=== PATIENT | male | born 1960 | race Caucasian/White ===

== ENCOUNTER 2019-04-10 06:24 | Emergency (ER) | payer MEDICAID ==
[~2019-04-10] VITALS: Ht 172.7 cm; Wt 75.3 kg
[2019-04-10 06:35] VITALS: Ht 172.7 cm; Wt 75.3 kg
[2019-04-10 08:39] VITALS: BP 119/81
== END 2019-04-10 08:39 | disposition home or self-care (01) ==
LOC: ED 06:24
DX: R33.9 Retention of urine, unspecified (principal); R10.30 Lower abdominal pain, unspecified; R35.0 Frequency of micturition; E11.9 Type 2 diabetes mellitus without complications; F17.200 Nicotine dependence, unspecified, uncomplicated
CPT/HCPCS: 99406

== ENCOUNTER 2019-04-13 12:08 | Emergency (ER) | payer MEDICAID ==
[~2019-04-13] VITALS: Ht 175.3 cm; Wt 72.6 kg
[2019-04-13 12:14] VITALS: Ht 175.3 cm; Wt 72.6 kg
[2019-04-13 12:47] VITALS: BP 125/84
== END 2019-04-13 12:47 | disposition home or self-care (01) ==
LOC: ED 12:08
DX: N39.0 Urinary tract infection, site not specified (principal); Z46.6 Encounter for fitting and adjustment of urinary device; E11.9 Type 2 diabetes mellitus without complications